=== PATIENT | male | born 1970 | race Caucasian/White ===

== ENCOUNTER 2023-05-09 12:38 | Emergency (ER) | payer MEDICAID ==
[~2023-05-09] VITALS: Ht 175.3 cm; Wt 82.6 kg
[~2023-05-09 12:38] MED LIST: LEVO750T68 MT
[2023-05-09 12:51] VITALS: BP 122/69; RESP 16; TEMP 98.8; O2SAT 95
[2023-05-09 12:58] VITALS: PULSE 108
[2023-05-09 14:50] LABS: BASOPHILS % 0.5 % (0.0-2.0); EOSINOPHILS % 0.9 % (0.0-5.0); HEMOGLOBIN. 16.2 g/dL (14.0-18.0); LYMPHOCYTES % 11.8 % (20.0-50.0); MEAN CORPUSCULAR HEMOGLOBIN 29.8 pg (28.0-32.0); MEAN CORPUSCULAR HGB CONC 33.2 g/dL (31.0-37.0); MEAN CORPUSCULAR VOLUME 89.8 fL (80.0-94.0); MEAN PLATELET VOLUME 7.6 fl (7.4-10.4); MONOCYTES % 3.7 % (2.0-8.0); NEUTROPHILS % 83.1 % (40.0-76.0); PLATELET 586 x1000/uL (130-400); RED BLOOD CELL COUNT 5.45 mill/uL (4.7-6.1); RED CELL DISTRIBUTION WIDTH 13.6 % (11.6-14.6); WHITE BLOOD COUNT 22.7 x1000/uL (4.5-11.0)
[2023-05-09 15:11] LABS: ALANINE AMINOTRANSFERASE 85 IU/L (10-49); ALBUMIN 4.2 g/dL (3.2-4.8); ASPARTATE AMINOTRANSFERASE 17 IU/L (<34); BILIRUBIN TOTAL 0.4 mg/dL (0.1-1.0); CALCIUM 9.3 mg/dL (8.7-10.4); CARBON DIOXIDE 27 mEq/L (21-32); CHLORIDE 100 mEq/L (98-107); CREATININE 1.2 mg/dL (0.6-1.3); GLUCOSE 142 mg/dL (70-105); POTASSIUM 5.1 mEq/L (3.5-5.1); PROTEIN TOTAL 8.1 g/dL (6.0-8.3); SODIUM 136 mEq/L (136-145); UREA NITROGEN BLOOD 25 mg/dL (9-23)
[2023-05-09 15:13] LABS: TROPONIN I HIGH SENSITIVITY < 4 ng/L (3.0-53)
== END 2023-05-09 13:10 | disposition left against medical advice (07) ==
LOC: ER 12:51
DX: R06.02 Shortness of breath (principal); Z53.21 Procedure and treatment not carried out due to patient leaving prior to being seen by health care provider
CPT/HCPCS: 36415; 71045; 80053; 84484; 85025; 93005; 99281